=== PATIENT | female | born 1945 | race Caucasian/White ===

== ENCOUNTER 2016-02-12 10:22 | Day surgery (SDC) | payer MEDICARE ==
[~2016-02-12] VITALS: Ht 172.7 cm; Wt 83.4 kg
[~2016-02-12 10:22] MED LIST: CALC-243 PO; CETI10CA PO; CHOL100045 PO; DILT120T10 PO; DIPH25CA6 PO; GLUC100016 PO; LISI-571 PO; METF500T4 PO; PRAV40TA PO; PROP150T PO; Sodium Chloride LOK Flush 10 mL Syringe IV PRN; WARF5TAB PO; fentaNYL-PF 50 mCg/mL 2 mL Inj IVPUSH PRN
[2016-02-12 10:50] VITALS: BP 144/70; PULSE 70; RESP 14; O2SAT 98
[2016-02-12] MEDS: 0.9% Sodium Chloride 1,000 ML IV PRN ×3 (11:14→12:10)
[2016-02-12 12:14] VITALS: BP 127/84; PULSE 70; RESP 14; O2SAT 99
[2016-02-12 12:23] VITALS: BP 121/60; PULSE 69; RESP 14; O2SAT 96
[2016-02-12 12:27] VITALS: BP 133/70; PULSE 79; RESP 14; O2SAT 97
--- NOTE | 2016-02-12 13:11 | ENDO ---
[address] [address] ENDOSCOPY PROCEDURE PATIENT: CALIXTO OLIVEROS : 1945 MR#: [id number] ADMIT: 02/12/2016 JOB ID: [id number] DATE: 02/12/2016 PRIMARY PROVIDER: Zheng Berumen MD PROCEDURE: Colonoscopy with hot snare polypectomy and cold forceps polypectomy. INDICATIONS: A 71-year-old female with a history of colon polyps. 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 EQUIPMENT: PCF H 180 AL. SEDATION: 1. 5 mg Versed. 2. 100 mcg fentanyl. COMPLICATIONS: None identified. BOWEL PREPARATION: Fair, adequate examination. PROCEDURAL INFORMATION: After the risks and benefits were explained, written and verbal informed consent was obtained. The patient was brought into the endoscopy suite and placed into the left lateral decubitus position. Sedation was achieved using the above-stated medications with the addition of oxygen via nasal cannula. A digital rectal examination was accomplished. Mild internal hemorrhoids noted. The scope was introduced into the rectum and advanced under direct visualization to the level of the cecum, as identified by the appendiceal orifice and ileocecal valve. The scope was slowly withdrawn to carefully examine the mucosa for any defects or lesions. Multiple views were made through the dentate line through 360 degrees. The colon was decompressed. The scope removed from the patient who tolerated the procedure well. This was a very difficult navigation, extremely challenging to gain position on the polyp at the ileocecal valve and to finally have the scope enter cecum proper. Because of the difficulty with positioning and redundancy/scope looping, actual scope time was prolonged more than 40 minutes and a 22 modifier was thus requested. FINDINGS: Diverticulosis again noted in the left colon. Very twisty, tortuous left colon. A couple of hyperplastic appearing rectal polyps were removed with cold forceps. Once we were finally able to obtain position on the polypoid structure at the ileocecal valve, we were able to secure a Jumbo snare around this, perhaps 12 mm sessile structure. It was removed with hot snare and a magnet was placed over the patient's pacemaker during all electrocautery. This had to be removed piecemeal with two separate snares for a complete excision. ENDOSCOPIC DIAGNOSES: 1. Ileocecal valve polyp. 2. Diverticulosis. 3. Challenging navigation. 4. Rectosigmoid polyps. 5. Mild hemorrhoids. RECOMMENDATIONS: 1. Await histopathology. 2. Repeat colonoscopy in three years' time. 3. Okay to resume Coumadin as early as tomorrow night.
--- NOTE | 2016-02-13 12:09 | PATH ---
SURGICAL PATHOLOGY Attending Physician:Dada Singh CASE STATUS: Signed Out PATIENT NAME: CALIXTO OLIVEROS PID: [id number] : 1945 DATE COLLECTED:02/12/2016 19:23 SPECIMEN: 1: Small Intestine/Bowel, Biopsy 2: Colon, Biopsy CLINICAL HISTORY: HISTORY SERRATED POLYPS ON BIOPSY 1). ILEOCECAL VALVE POLYP 2). RECTO-SIGMOID POLYPS FINAL DIAGNOSIS: 1.ILEOCECAL VALVE POLYP: SESSILE SERRATED ADENOMA. 2.RECTOSIGMOID POLYPS: HYPERPLASTIC POLYPS. ICD10 CODE D12.0 K63.5 GROSS DESCRIPTION: The specimen is received in two formalin filled containers labeled with the patient's name. 1). The specimen is sublabeled "IC valve polyp" and consists of 2 portions of tissue which aggregate to 0.6 x 0.6 x 0.5 CM. The specimen is entirely submitted in cassette 1A. 2). The specimen is sublabeled "rectosigmoid polyp" and consists of 2 portions of tissue which aggregate to 0.4 x 0.4 x 0.3 CM. The specimen is entirely submitted in cassette A. 02/12/2016 DAC MICRO DESCRIPTION: See diagnosis. ICD-9 CODES: CPT CODES: 1: 73287 2: 00293 Electronically Signed Out Gail Jones MD [facility] [address], [place] [address] Technical component performed at [facility], [address] [place] [address] Ave[address], [address]
== END 2016-02-12 23:59 | disposition home or self-care (01) ==
LOC: END 10:22
PROVIDERS: ATTEND Internal Medicine Gastroenterology
DX: Z12.11 Encounter for screening for malignant neoplasm of colon (principal); Z86.010 Personal history of colon polyps; D12.0 Benign neoplasm of cecum; K63.5 Polyp of colon; K57.30 Diverticulosis of large intestine without perforation or abscess without bleeding; K64.9 Unspecified hemorrhoids; I48.91 Unspecified atrial fibrillation; E11.9 Type 2 diabetes mellitus without complications; Z79.01 Long term (current) use of anticoagulants; Z95.0 Presence of cardiac pacemaker; Z79.84 Long term (current) use of oral hypoglycemic drugs
CPT/HCPCS: 45380; 45385; 99153; G0500; J2250; J7030